=== PATIENT | female | born 2000 | race Caucasian/White ===

== ENCOUNTER 2021-09-27 16:03 | Emergency (ER) | payer MEDICAID ==
[~2021-09-27] VITALS: Ht 160 cm; Wt 91.2 kg
[~2021-09-27 16:03] MED LIST: ALBU0.0939
[2021-09-27 16:15] VITALS: BP 141/87
[2021-09-27] MEDS ORDERED: NAPR-54 PO (16:28)
[2021-09-27] MEDS ORDERED: AMOX500C25 PO (16:28)
[2021-09-27 17:15] VITALS: BP 132/81
--- NOTE | 2021-09-27 17:15 | NUR ---
Patient discharged with v/s stable. Written and verbal after care instructions given and explained. Patient alert, oriented and verbalized understanding of instructions. Ambulatory with steady gait. All questions addressed prior to discharge. ID band removed. Patient advised to follow up with PMD. Rx of amoxicillin/naproxen given. Patient educated on indication of medication including possible reaction and side effects. Opportunity to ask questions provided and answered.
--- NOTE | 2021-09-27 17:15 | NUR ---
20 Y/O F PRESENTS TO ED WITH R EAR PAIN. PT STATES EAR POPPED ON MONDAY NIGHT AFTER BLOWING NOSE. DENIES N/V/D; SKIN IS PINK/WARM/DRY; AAOX4 WITH EVEN AND STEADY GAIT; LUNGS CLEAR BL; HR EVEN AND REGULAR; PT DENIES ANY FEVER, CP, SOB, OR COUGH AT THIS TIME; PATIENT STATES PAIN OF 7/10 AT THIS TIME; VSS; PATIENT POSITIONED FOR COMFORT; HOB ELEVATED; BEDRAILS UP X2; BED DOWN. ER MD MADE AWARE OF PT STATUS. PMH: ASTHMA MEDS: TOOK TYLENOL AND NORCO FOR PAIN
== END 2021-09-27 17:15 | disposition home or self-care (01) ==
LOC: MED 16:03
DX: H66.91 Otitis media, unspecified, right ear (principal); J45.909 Unspecified asthma, uncomplicated
CPT/HCPCS: 99283

== ENCOUNTER 2023-07-17 21:30 | Emergency (ER) | payer SELFPAY ==
[~2023-07-17] VITALS: Ht 162.6 cm; Wt 93.4 kg
[~2023-07-17 21:30] MED LIST changes: +AMOX500C25 PO; +NAPR-54 PO
[2023-07-17 21:53] VITALS: BP 152/91; PULSE 82; RESP 20; TEMP 97.1; O2SAT 100
[2023-07-18] MEDS ORDERED: KETOROLAC 30 MG/ML VIAL IM ONE (00:10)
[2023-07-18] MEDS ORDERED: HYDROcodone/APAP 5/325 MG 1 TAB TAB PO ONE (00:10)
[2023-07-18 00:37] LABS: BASOPHILS # (AUTO) 0.1 K/uL (0.00-0.22); BASOPHILS % (AUTO) 1.1 % (0.0-2.0); EOSINOPHILS # (AUTO) 0.2 K/uL (0-0.4); EOSINOPHILS % (AUTO) 1.4 % (0.0-4.0); HEMATOCRIT 42.2 % (36-48); HEMOGLOBIN 14.2 g/dL (12.0-16.0); LYMPHOCYTES # (AUTO) 4.1 K/uL (2.5-16.5); LYMPHOCYTES % (AUTO) 31.9 % (20.5-51.1); MEAN CORPUSCULAR HEMOGLOBIN 33 pg (27-31); MEAN CORPUSCULAR HGB CONC 34 g/dL (33-37); MEAN CORPUSCULAR VOLUME 97.2 fL (80-94); MONOCYTES # (AUTO) 1.2 K/uL (0.8-1.0); MONOCYTES % (AUTO) 9.3 % (1.7-9.3); NEUTROPHILS # (AUTO) 7.3 K/uL (1.8-7.7); NEUTROPHILS % (AUTO) 56.3 % (42.2-75.2); PLATELET COUNT (AUTO) 275 K/uL (140-450); RED BLOOD CELL COUNT(AUTO) 4.34 MIL/uL (4.20-5.40)
[2023-07-18 00:47] LABS: ANION GAP 10.2 (8-16); CALCIUM 8.3 mg/dL (8.5-10.1); CARBON DIOXIDE 28.5 mmol/L (21-32); CREATININE 0.6 mg/dL (0.6-1.3); POTASSIUM 3.7 mmol/L (3.5-5.1)
[2023-07-18 00:53] LABS: ALBUMIN 3.6 g/dL (3.4-5.0); BILIRUBIN,DIRECT 0.1 mg/dL (0.0-0.3); TOTAL BILIRUBIN 0.4 mg/dL (0.0-1.0); TOTAL PROTEIN, SERUM 7.3 g/dL (6.4-8.2)
[2023-07-18] MEDS ORDERED: HYDROcodone/APAP 5/325 MG 1 TAB TAB ONE (01:38)
[2023-07-18] MEDS ORDERED: KETOROLAC 30 MG/ML VIAL ONE (01:38)
[2023-07-18] MEDS ORDERED: MORPHINE SULFATE 4 MG/ML SYR IM ONE (03:05)
[2023-07-18] MEDS ORDERED: BEN10 PO (03:08)
[2023-07-18] MEDS ORDERED: ACET-8905 PO (03:08)
[2023-07-18] MEDS ORDERED: DOCU-299 PO (03:08)
[2023-07-18 03:30] VITALS: BP 152/91; PULSE 82; RESP 20; TEMP 97.1; O2SAT 100
== END 2023-07-18 03:30 | disposition home or self-care (01) ==
LOC: MED 21:30
DX: R10.31 Right lower quadrant pain (principal); J45.909 Unspecified asthma, uncomplicated; Z79.899 Other long term (current) drug therapy; Z79.1 Long term (current) use of non-steroidal anti-inflammatories (NSAID); Z79.2 Long term (current) use of antibiotics
CPT/HCPCS: 36415; 74176; 80048; 80076; 81002; 81025; 83690; 85025; 96372; 99285; J1885; J2270; 99284

== ENCOUNTER 2023-12-04 16:01 | Emergency (ER) | payer MEDICAID ==
[~2023-12-04] VITALS: Ht 162.6 cm; Wt 94.8 kg
[~2023-12-04 16:01] MED LIST changes: +ACET-8905 PO; +BEN10 PO; +DOCU-299 PO; +NAPR-337 PO; -NAPR-54 PO
[2023-12-04 16:20] VITALS: BP 109/72; PULSE 76; RESP 17; TEMP 98.5; O2SAT 98
[2023-12-04 18:02] LABS: APPEARANCE,URINE CLEAR (CLEAR); BILIRUBIN,URINE NEGATIVE (NEGATIVE); BLOOD, URINE NEGATIVE (NEGATIVE); COLOR,URINE YELLOW (YELLOW); LEUKOCYTE ESTERASE ,URINE NEGATIVE (NEGATIVE); NITRITE, URINE NEGATIVE (NEGATIVE); PROTEIN,URINE NEGATIVE (NEGATIVE); UGLUCOSE NEGATIVE (NEGATIVE)
[2023-12-04 18:19] VITALS: BP 112/82; PULSE 77; RESP 16; TEMP 98; O2SAT 99
== END 2023-12-04 18:19 | disposition home or self-care (01) ==
LOC: MED 16:01
DX: O26.891 Other specified pregnancy related conditions, first trimester (principal); Z3A.01 Less than 8 weeks gestation of pregnancy; Z79.899 Other long term (current) drug therapy
CPT/HCPCS: 76856; 81003; 81025; 87491; 99284; Q0092

== ENCOUNTER 2024-02-18 00:17 | Emergency (ER) | payer MEDICAID ==
[~2024-02-18] VITALS: Ht 160 cm; Wt 95.3 kg
[2024-02-18 00:19] VITALS: BP 120/63; PULSE 88; RESP 16; TEMP 96.3; O2SAT 99
[2024-02-18] MEDS ORDERED: ACET-10509 PO (01:06)
[2024-02-18] MEDS: ACETAMINOPHEN 325 MG TAB PO ONE (01:09)
[2024-02-18 01:18] VITALS: BP 118/63; PULSE 80; RESP 16; TEMP 97.7; O2SAT 99
[2024-02-18 02:19] LABS: FLU A ANTIGEN negative (NEGATIVE); FLU B ANTIGEN negative (NEGATIVE)
== END 2024-02-18 01:18 | disposition home or self-care (01) ==
LOC: MED 00:17
DX: O98.512 Other viral diseases complicating pregnancy, second trimester (principal); B34.9 Viral infection, unspecified; O99.512 Diseases of the respiratory system complicating pregnancy, second trimester; J45.909 Unspecified asthma, uncomplicated; Z3A.16 16 weeks gestation of pregnancy; Z20.822 Contact with and (suspected) exposure to COVID-19; Z79.1 Long term (current) use of non-steroidal anti-inflammatories (NSAID); Z79.2 Long term (current) use of antibiotics; Z79.899 Other long term (current) drug therapy
CPT/HCPCS: 99283